=== PATIENT | male | born 1955 | race Caucasian/White ===

== ENCOUNTER 2023-12-13 09:30 | Day surgery (SDC) | payer MEDICARE, SELFPAY ==
[2023-12-07 08:19] VITALS: BMI 28.8
[2023-12-07 08:33] VITALS: BMI 28.8
--- NOTE | 2023-12-09 14:00 | HO.ANESPROP2 ---
Documented by User: Anastacia Adamson NP 12/09/23 14:01 HPI - Anesthesia Eval Consult details Narrative: 68yo M for Right Cataract Extraction IOL Insertion No previous cataract on record Anesthesia Pre-Procedure Meds Is the patient on any of the following meds?: GLP1/DPP4 PMFSH Past Medical History Medical History Seizure disorder Type 2 diabetes mellitus Polycythemia Neuropathy Elevated cholesterol Hypothyroid Multiple sclerosis Squamous cell carcinoma of larynx Emphysema of lung Chronic renal insufficiency Depression HTN (hypertension) Coronary atherosclerosis Anxiety Surgical History Surgical History Hx of arthroscopic knee surgery Hx of total knee arthroplasty Hx of foot surgery History of subtotal thyroidectomy H/O colonoscopy Social History Social History Are you a primary child care attendant school to a significant other at home: No Do you presently have visiting nurse or other home services: No Patient Tobacco Use Status: Current everyday Tobacco user Tobacco use type: Cigarette Cigarette Packs Per Day: 1 Cigarettes Per Day: 20.0 Years Smoked: 55 Use of substances other than those prescribed or required for medical reasons: No Have you been hit, kicked, punched, or otherwise hurt by someone within the past year? If so, by whom?: No Are you DNR?: No Advance Directives Information Provided: Yes Advance Directives on File: No Recently lost weight without trying: No Eating poorly because of decreased appetite: No Nutrition Risks: No Nutritional Risk Poor oral hygiene: No Meds Allergies Allergy/AdvReac Type Severity Reaction Status Date / Time albumin human Allergy Intermediate Headache Verified 12/13/23 13:57 [From Rebif (with albumin)] glatiramer (copolymer 1) Allergy Intermediate Hives Verified 12/13/23 13:57 [From Copaxone] interferon beta-1a Allergy Intermediate Headache Verified 12/13/23 13:57 [From Rebif (with albumin)] Home Medications ?Medication ?Instructions ?Recorded ?Confirmed ?Last Taken ?Type atorvastatin 40 mg tablet 40 mg PO DAILY 12/07/23 12/07/23 Unknown History cholecalciferol (vitamin D3) 50 50 mcg PO DAILY 12/07/23 12/07/23 Unknown History mcg (2,000 unit) capsule (Vitamin D3) cyanocobalamin (vitamin B-12) 1,000 mcg PO DAILY 12/07/23 12/07/23 Unknown History 1,000 mcg tablet (Vitamin B-12) dulaglutide 1.5 mg/0.5 mL 1.5 mg subcut QWEEK 12/07/23 12/07/23 Unknown History subcutaneous pen injector (Trulicity) famotidine 20 mg tablet 20 mg PO BID 12/07/23 12/07/23 Unknown History gabapentin 600 mg tablet 600 mg PO BID 12/07/23 12/13/23 12/13/23 History lamotrigine 150 mg tablet 150 mg PO BID 12/07/23 12/13/23 12/13/23 History levothyroxine 100 mcg tablet 100 mcg PO DAILY 12/07/23 12/13/23 12/13/23 History metformin 500 mg tablet,extended 1,000 mg PO BID 12/07/23 12/07/23 Unknown History release 24 hr Exam Height,Weight and Vital Signs: Height 5 ft 9.69 in Weight 90.1 kg Assessment and Plan Assessment Anesthesia Assessment: Chart Reviewed Documented by User: Asuncion Dias MD 12/13/23 14:38 PMFSH Past Medical History Medical History Seizure disorder Type 2 diabetes mellitus Polycythemia Neuropathy Elevated cholesterol Hypothyroid Multiple sclerosis Squamous cell carcinoma of larynx Emphysema of lung Chronic renal insufficiency Depression HTN (hypertension) Coronary atherosclerosis Anxiety Surgical History Surgical History Hx of arthroscopic knee surgery Hx of total knee arthroplasty Hx of foot surgery History of subtotal thyroidectomy H/O colonoscopy History of Problems with Anesthesia: No Social History Social History Are you a primary child care attendant school to a significant other at home: No Do you presently have visiting nurse or other home services: No Patient Tobacco Use Status: Current everyday Tobacco user Tobacco use type: Cigarette Cigarette Packs Per Day: 1 Cigarettes Per Day: 20.0 Years Smoked: 55 Use of substances other than those prescribed or required for medical reasons: No Have you been hit, kicked, punched, or otherwise hurt by someone within the past year? If so, by whom?: No Are you DNR?: No Advance Directives Information Provided: Yes Advance Directives on File: No Recently lost weight without trying: No Eating poorly because of decreased appetite: No Nutrition Risks: No Nutritional Risk Poor oral hygiene: No Meds Allergies Allergy/AdvReac Type Severity Reaction Status Date / Time albumin human Allergy Intermediate Headache Verified 12/13/23 13:57 [From Rebif (with albumin)] glatiramer (copolymer 1) Allergy Intermediate Hives Verified 12/13/23 13:57 [From Copaxone] interferon beta-1a Allergy Intermediate Headache Verified 12/13/23 13:57 [From Rebif (with albumin)] Home Medications ?Medication ?Instructions ?Recorded ?Confirmed ?Last Taken ?Type atorvastatin 40 mg tablet 40 mg PO DAILY 12/07/23 12/07/23 Unknown History cholecalciferol (vitamin D3) 50 50 mcg PO DAILY 12/07/23 12/07/23 Unknown History mcg (2,000 unit) capsule (Vitamin D3) cyanocobalamin (vitamin B-12) 1,000 mcg PO DAILY 12/07/23 12/07/23 Unknown History 1,000 mcg tablet (Vitamin B-12) dulaglutide 1.5 mg/0.5 mL 1.5 mg subcut QWEEK 12/07/23 12/07/23 Unknown History subcutaneous pen injector (Trulicity) famotidine 20 mg tablet 20 mg PO BID 12/07/23 12/07/23 Unknown History gabapentin 600 mg tablet 600 mg PO BID 12/07/23 12/13/23 12/13/23 History lamotrigine 150 mg tablet 150 mg PO BID 12/07/23 12/13/23 12/13/23 History levothyroxine 100 mcg tablet 100 mcg PO DAILY 12/07/23 12/13/23 12/13/23 History metformin 500 mg tablet,extended 1,000 mg PO BID 12/07/23 12/07/23 Unknown History release 24 hr Exam Airway Mallampati Class: III TM Dist: >3cm Neck ROM: Full Loose/Missing/Broken Teeth: No Heart: RRR Lungs: CTA Assessment and Plan Assessment Anesthesia Assessment: Anesthesia Plan Discussed Final Anesthetic Review History of Problems with Anesthesia: No NPO: Yes ASA Class: III Final Preanesthetic Review: Meds/Allgs Chart Reviewed, Consent Obtained/Reviewed and Anes Risks/Benef Reviewed Patient Risk: Intermediate Procedure Risk: Low Anesthetic Plan Anesthetic Plan: MAC: Disposition: Standard PACU
[2023-12-13] MEDS: Tetracaine HCl/PF 0.5% Oph Sol 4 ML DROPS 1 DROP EYE-RIGHT (13:25)
[2023-12-13] MEDS: Cyclopentolate 1 % Ophth Sol 2 ML DRPBTL 1 DROP EYE-RIGHT ×3 (13:27→13:43)
[2023-12-13] MEDS: Tropicamide 1 % Ophth Sol 3 ML BTL 1 DROP EYE-RIGHT ×3 (13:29→13:45)
[2023-12-13] MEDS: Ketorolac Tromethamine 0.5% Op 10 ML DROPS 1 DROP EYE-RIGHT ×3 (13:31→13:47)
[2023-12-13] MEDS: Phenylephrine HCL 2.5% Oph SoL 2 ML BOTTLE 1 DROP EYE-RIGHT ×3 (13:33→13:49)
[2023-12-13 13:52] VITALS: BP 121/68; PULSE 69; RESP 14; TEMP 36.3; O2SAT 99
[2023-12-13] MEDS: Lactated Ringers 500 ML 50 ML IV (13:56)
[2023-12-13 14:10] LABS: Glucose, Whole Blood 95 mg/dL (60-115)
--- NOTE | 2023-12-13 14:40 | MHC.SHP ---
Pre-Procedural Eval Section A - 24 Hr Update-Section A only Date of Service: 12/13/23 The patient is an INPATIENT: No Changes since office visit: No Cold of Flu in the past 2 weeks, No New Medical Problems, No Changes in Medication and No Patient answered all questions The patient has been examined within 24 hours of the surgical procedure. The History & Physical has been completed within 30 days and I have reviewed it.: Yes Section B - Complete if H&P > 30 days Chief Complaint: Age-related nuclear cataract, right eye Allergies: Allergies Allergy/AdvReac Type Severity Reaction Status Date / Time albumin human Allergy Intermediate Headache Verified 12/13/23 13:57 [From Rebif (with albumin)] glatiramer (copolymer 1) Allergy Intermediate Hives Verified 12/13/23 13:57 [From Copaxone] interferon beta-1a Allergy Intermediate Headache Verified 12/13/23 13:57 [From Rebif (with albumin)] Plan Diagnosis/Plan: Unchanged I have reviewed the history and physical and performed a pertinent physical examination on my patient. No changes have occurred unless specified. Time Spent With Patient Time: Total time managing care of this patient today ____ minutes.
--- NOTE | 2023-12-13 14:41 | P.PCNO_ITS ---
Ophthalmology Procedure Procedure Date of Service: 12/13/23 Ophthalmology Viscoelastic: Healon Duet Dual Pack Pro Ophthalmology Lenses: IOL Acrysof MP - MA60AC (20.5) Procedure Notes: PREOPERATIVE DIAGNOSIS: Decreased visual acuity right eye secondary to cataract POSTOPERATIVE DIAGNOSIS: Same PROCEDURE: Right cataract extraction with intraocular lens insertion SURGEON: John Samuels M.D. ANESTHESIA: Topical/MAC ESTIMATED BLOOD LOSS: None COMPLICATIONS: None After obtaining informed consent, the patient was brought to the operating room suite and placed in the supine position. After adequate sedation per anesthesia, topical drops of Tetracaine were given to the right eye. The eye was then prepped and draped in the usual sterile fashion. The operating room microscope was then positioned over the operative eye and a lid speculum placed. A paracentesis was created. Viscoelastic was then instilled into the anterior chamber. A three plane incision was then created temporally, utilizing a 2.85 mm keratome. Capsulotomy forceps were then utilized to create a circular tear capsulotomy. Hydrodissection and hydrodelineation were carried out until adequate mobilization of the nucleus occurred. Phacoemulsification was then utilized to remove the dense central nu cleus followed by removal of the cortical material utilizing the automated aspiration irrigation unit. Viscoelastic was instilled into the posterior capsular bag followed by placement of a posterior chamber intraocular lens without difficulty. The residual Viscoelastic was then removed utilizing the automated IA machine. The wound was checked and found to be watertight. The patient tolerated the procedure well and the lid speculum was removed. Intracameral injection of Vigamox 0.1 mL followed by a subtenon injection of Kenalog-40 0.2 mL were administered. The patient will be seen in the a.m. s
[2023-12-13 15:18] VITALS: BP 113/78; PULSE 73; RESP 16; TEMP 36.1; O2SAT 96
== END 2023-12-13 15:33 | disposition home or self-care (01) ==
PROVIDERS: PCP Family Medicine; Visit Provider Ophthalmology
PROC: (CPT 66985; principal; 2023-12-13 12:10)
DX: H25.11 Age-related nuclear cataract, right eye (principal); H54.7 Unspecified visual loss; H52.223 Regular astigmatism, bilateral; Z83.518 Family history of other specified eye disorder; G35 Multiple sclerosis; G40.909 Epilepsy, unspecified, not intractable, without status epilepticus; E11.22 Type 2 diabetes mellitus with diabetic chronic kidney disease; N18.30 Chronic kidney disease, stage 3 unspecified; E78.00 Pure hypercholesterolemia, unspecified; G62.9 Polyneuropathy, unspecified; E03.9 Hypothyroidism, unspecified; Z79.85 Long-term (current) use of injectable non-insulin antidiabetic drugs; Z79.84 Long term (current) use of oral hypoglycemic drugs; Z79.899 Other long term (current) drug therapy; Z88.8 Allergy status to other drugs, medicaments and biological substances; F17.210 Nicotine dependence, cigarettes, uncomplicated; Z98.890 Other specified postprocedural states
CPT/HCPCS: 66984; 82947; J2250; J3010; J3301; V2630

== ENCOUNTER 2023-12-27 09:18 | Day surgery (SDC) | payer MEDICARE, SELFPAY ==
[2023-12-07 08:36] VITALS: BMI 28.8
--- NOTE | 2023-12-23 13:50 | HO.ANESPROP2 ---
Documented by User: Anastacia Adamson NP 12/23/23 13:50 HPI - Anesthesia Eval Consult details Narrative: 68yo M for Left Cataract Extraction IOL Insertion Right cataract 12/13/23: Fent 50, Midaz 4 Anesthesia Pre-Procedure Meds Is the patient on any of the following meds?: GLP1/DPP4 PMFSH Past Medical History Medical History Seizure disorder Type 2 diabetes mellitus Polycythemia Neuropathy Elevated cholesterol Hypothyroid Multiple sclerosis Squamous cell carcinoma of larynx Emphysema of lung Chronic renal insufficiency Depression HTN (hypertension) Coronary atherosclerosis Anxiety Surgical History Surgical History Hx of arthroscopic knee surgery Hx of total knee arthroplasty Hx of foot surgery History of subtotal thyroidectomy H/O colonoscopy History of Problems with Anesthesia: No Social History Social History Are you a primary rn progressive care to a significant other at home: No Do you presently have visiting nurse or other home services: No Patient Tobacco Use Status: Current everyday Tobacco user Tobacco use type: Cigarette Cigarette Packs Per Day: 1 Cigarettes Per Day: 20.0 Years Smoked: 55 Use of substances other than those prescribed or required for medical reasons: No Have you been hit, kicked, punched, or otherwise hurt by someone within the past year? If so, by whom?: No Are you DNR?: No Advance Directives Information Provided: Yes Advance Directives on File: No Recently lost weight without trying: No Eating poorly because of decreased appetite: No Nutrition Risks: No Nutritional Risk Poor oral hygiene: No Meds Allergies Allergy/AdvReac Type Severity Reaction Status Date / Time albumin human Allergy Intermediate Headache Verified 12/27/23 11:01 [From Rebif (with albumin)] glatiramer (copolymer 1) Allergy Intermediate Hives Verified 12/27/23 11:01 [From Copaxone] interferon beta-1a Allergy Intermediate Headache Verified 12/27/23 11:01 [From Rebif (with albumin)] Home Medications ?Medication ?Instructions ?Recorded ?Confirmed ?Last Taken ?Type atorvastatin 40 mg tablet 40 mg PO DAILY 12/07/23 12/07/23 Unknown History cholecalciferol (vitamin D3) 50 50 mcg PO DAILY 12/07/23 12/07/23 Unknown History mcg (2,000 unit) capsule (Vitamin D3) cyanocobalamin (vitamin B-12) 1,000 mcg PO DAILY 12/07/23 12/07/23 Unknown History 1,000 mcg tablet (Vitamin B-12) dulaglutide 1.5 mg/0.5 mL 1.5 mg subcut QWEEK 12/07/23 12/07/23 12/19/23 History subcutaneous pen injector (Trulicity) famotidine 20 mg tablet 20 mg PO BID 12/07/23 12/07/23 Unknown History gabapentin 600 mg tablet 600 mg PO BID 12/07/23 12/13/23 12/27/23 08:00 History lamotrigine 150 mg tablet 150 mg PO BID 12/07/23 12/13/23 12/27/23 08:00 History levothyroxine 100 mcg tablet 100 mcg PO DAILY 12/07/23 12/13/23 12/27/23 08:00 History metformin 500 mg tablet,extended 1,000 mg PO BID 12/07/23 12/07/23 Unknown History release 24 hr Exam Height,Weight and Vital Signs: Height 5 ft 9.69 in Weight 90.1 kg Assessment and Plan Assessment Anesthesia Assessment: Chart Reviewed Final Anesthetic Review History of Problems with Anesthesia: No Documented by User: Johanne Love MD 12/27/23 12:18 PMFSH Past Medical History Medical History Seizure disorder Type 2 diabetes mellitus Polycythemia Neuropathy Elevated cholesterol Hypothyroid Multiple sclerosis Squamous cell carcinoma of larynx Emphysema of lung Chronic renal insufficiency Depression HTN (hypertension) Coronary atherosclerosis Anxiety Family History Family history of problems with anesthesia: No Surgical History Surgical History Hx of arthroscopic knee surgery Hx of total knee arthroplasty Hx of foot surgery History of subtotal thyroidectomy H/O colonoscopy Social History Social History Are you a primary rn progressive care to a significant other at home: No Do you presently have visiting nurse or other home services: No Patient Tobacco Use Status: Current everyday Tobacco user Tobacco use type: Cigarette Cigarette Packs Per Day: 1 Cigarettes Per Day: 20.0 Years Smoked: 55 Use of substances other than those prescribed or required for medical reasons: No Have you been hit, kicked, punched, or otherwise hurt by someone within the past year? If so, by whom?: No Are you DNR?: No Advance Directives Information Provided: Yes Advance Directives on File: No Recently lost weight without trying: No Eating poorly because of decreased appetite: No Nutrition Risks: No Nutritional Risk Poor oral hygiene: No Meds Allergies Allergy/AdvReac Type Severity Reaction Status Date / Time albumin human Allergy Intermediate Headache Verified 12/27/23 11:01 [From Rebif (with albumin)] glatiramer (copolymer 1) Allergy Intermediate Hives Verified 12/27/23 11:01 [From Copaxone] interferon beta-1a Allergy Intermediate Headache Verified 12/27/23 11:01 [From Rebif (with albumin)] Home Medications ?Medication ?Instructions ?Recorded ?Confirmed ?Last Taken ?Type atorvastatin 40 mg tablet 40 mg PO DAILY 12/07/23 12/07/23 Unknown History cholecalciferol (vitamin D3) 50 50 mcg PO DAILY 12/07/23 12/07/23 Unknown History mcg (2,000 unit) capsule (Vitamin D3) cyanocobalamin (vitamin B-12) 1,000 mcg PO DAILY 12/07/23 12/07/23 Unknown History 1,000 mcg tablet (Vitamin B-12) dulaglutide 1.5 mg/0.5 mL 1.5 mg subcut QWEEK 12/07/23 12/07/23 12/19/23 History subcutaneous pen injector (Trulicity) famotidine 20 mg tablet 20 mg PO BID 12/07/23 12/07/23 Unknown History gabapentin 600 mg tablet 600 mg PO BID 12/07/23 12/13/23 12/27/23 08:00 History lamotrigine 150 mg tablet 150 mg PO BID 09/01/1912/13/23 12/27/23 08:00 History levothyroxine 100 mcg tablet 100 mcg PO DAILY 12/07/23 12/13/23 12/27/23 08:00 History metformin 500 mg tablet,extended 1,000 mg PO BID 12/07/23 12/07/23 Unknown History release 24 hr Exam Airway Mallampati Class: II TM Dist: >3cm Neck ROM: Full Heart: rrr Lungs: cta Assessment and Plan Assessment Anesthesia Assessment: Anesthesia Plan Discussed Final Anesthetic Review Family History of Problems with Anesthesia: No NPO: Yes ASA Class: III Final Preanesthetic Review: No Changes in Pt Med Stat, Meds/Allgs Chart Reviewed, Consent Obtained/Reviewed and Anes Risks/Benef Reviewed Patient Risk: Intermediate Procedure Risk: Low Anesthetic Plan Anesthetic Plan: MAC: Disposition: Standard PACU
[2023-12-27 11:06] VITALS: BP 121/81; PULSE 74; RESP 16; TEMP 36.6; O2SAT 97
[2023-12-27] MEDS: Tetracaine HCl/PF 0.5% Oph Sol 4 ML DROPS 1 DROP EYE-LEFT (11:13)
[2023-12-27] MEDS: Cyclopentolate 1 % Ophth Sol 2 ML DRPBTL 1 DROP EYE-LEFT ×3 (11:16→11:33)
[2023-12-27] MEDS: Tropicamide 1 % Ophth Sol 3 ML BTL 1 DROP EYE-LEFT ×3 (11:19→11:34)
[2023-12-27] MEDS: Ketorolac Tromethamine 0.5% Op 10 ML DROPS 1 DROP EYE-LEFT ×3 (11:21→11:35)
[2023-12-27] MEDS: Phenylephrine HCL 2.5% Oph SoL 2 ML BOTTLE 1 DROP EYE-LEFT ×3 (11:23→11:37)
[2023-12-27] MEDS: Lactated Ringers 500 ML 50 ML IV (11:30)
--- NOTE | 2023-12-27 12:19 | MHC.SHP ---
Pre-Procedural Eval Section A - 24 Hr Update-Section A only Date of Service: 12/27/23 The patient is an INPATIENT: No Changes since office visit: No Cold of Flu in the past 2 weeks, No New Medical Problems, No Changes in Medication and No Patient answered all questions The patient has been examined within 24 hours of the surgical procedure. The History & Physical has been completed within 30 days and I have reviewed it.: Yes Section B - Complete if H&P > 30 days Chief Complaint: Age-related nuclear cataract, left eye Allergies: Allergies Allergy/AdvReac Type Severity Reaction Status Date / Time albumin human Allergy Intermediate Headache Verified 12/27/23 11:01 [From Rebif (with albumin)] glatiramer (copolymer 1) Allergy Intermediate Hives Verified 12/27/23 11:01 [From Copaxone] interferon beta-1a Allergy Intermediate Headache Verified 12/27/23 11:01 [From Rebif (with albumin)] Plan Diagnosis/Plan: Unchanged I have reviewed the history and physical and performed a pertinent physical examination on my patient. No changes have occurred unless specified. Time Spent With Patient Time: Total time managing care of this patient today ____ minutes.
--- NOTE | 2023-12-27 12:20 | HO.PNOPHT ---
Ophthalmology Procedure Procedure Date of Service: 12/27/23 Ophthalmology Viscoelastic: Healon Duet Dual Pack Pro Ophthalmology Lenses: IOL Acrysof MP - MA60AC (19.5) Procedure Notes: PREOPERATIVE DIAGNOSIS: Decreased visual acuity left eye secondary to cataract POSTOPERATIVE DIAGNOSIS: Same PROCEDURE: Left cataract extraction with intraocular lens insertion SURGEON: John Samuels M.D. ANESTHESIA: Topical/MAC ESTIMATED BLOOD LOSS: None COMPLICATIONS: None After obtaining informed consent, the patient was brought to the operation room suite and placed in the supine position. After adequate sedation per anesthesia, topical drops of Tetracaine were given to the left eye. The eye was then prepped and draped in the usual sterile fashion. The operating room microscope was then positioned over the operative eye and a lid speculum placed. A paracentesis was created. Viscoelastic was then instilled into the anterior chamber. A three plane incision was then created temporally, utilizing a 2.85 mm keratome. Capsulotomy forceps were then utilized to create a circular tear capsulotomy. Hydrodissection and hydrodelineation were carried out until adequate mobilization of the nucleus occurred. Phacoemulsification was then utilized to remove the dense central nucleus followed by removal of the cortical material utilizing the automated aspiration irrigation unit. Viscoat elastic was instilled into the posterior capsular bag followed by placement of a posterior chamber intraocular lens without difficulty. The residual Viscoat elastic was then removed utilizing the automated IA machine. The wound was check and found to be watertight. The patient tolerated the procedure well and the lid speculum was removed. Intracameral injection of Vigamox 0.1 mL followed by a subtenon injection of Kenalog-40 0.2 mL were administered. The patient will be seen in the a.m.
[2023-12-27 12:58] VITALS: BP 159/78; PULSE 73; RESP 16; TEMP 36.6; O2SAT 99
[2023-12-28 06:58] LABS: Glucose, Whole Blood 138 mg/dL (60-115)
== END 2023-12-27 13:05 | disposition home or self-care (01) ==
PROVIDERS: PCP Family Medicine; Visit Provider Ophthalmology
PROC: (CPT 66985; principal; 2023-12-27 12:30)
DX: H25.12 Age-related nuclear cataract, left eye (principal); H52.223 Regular astigmatism, bilateral; G35 Multiple sclerosis; E11.22 Type 2 diabetes mellitus with diabetic chronic kidney disease; I12.9 Hypertensive chronic kidney disease with stage 1 through stage 4 chronic kidney disease, or unspecified chronic kidney disease; N18.30 Chronic kidney disease, stage 3 unspecified; G62.9 Polyneuropathy, unspecified; G40.909 Epilepsy, unspecified, not intractable, without status epilepticus; E78.00 Pure hypercholesterolemia, unspecified; E03.9 Hypothyroidism, unspecified; Z79.85 Long-term (current) use of injectable non-insulin antidiabetic drugs; Z79.84 Long term (current) use of oral hypoglycemic drugs; Z79.899 Other long term (current) drug therapy; Z88.8 Allergy status to other drugs, medicaments and biological substances; F17.210 Nicotine dependence, cigarettes, uncomplicated
CPT/HCPCS: 66984; 82947; J2250; J3301; V2630